=== PATIENT | female | born 1965 | race Caucasian/White ===

== ENCOUNTER 2024-11-09 20:41 | Emergency (ER) | payer OTHER, MEDICAID ==
[~2024-11-09] VITALS: Ht 165.1 cm; Wt 63.5 kg
[2024-11-09] MEDS ORDERED: HYDROCODONE/APAP 5/325MG TABLET ONE (22:24)
[2024-11-09] MEDS: HYDROCODONE/APAP 5/325MG TABLET PO ONE (22:25)
[2024-11-09] MEDS ORDERED: ACETAMINOPHEN 325 MG TABLET ONE (22:33)
[2024-11-09] MEDS: ACETAMINOPHEN 325 MG TABLET PO ONE (22:35)
[2024-11-09 23:33] VITALS: BP 142/89; TEMP 98; O2SAT 98
== END 2024-11-09 23:33 | disposition home or self-care (01) ==
LOC: ER 20:44
DX: S30.0XXA Contusion of lower back and pelvis, initial encounter (principal); S80.12XA Contusion of left lower leg, initial encounter; M54.50 Low back pain, unspecified; M79.605 Pain in left leg; Z88.1 Allergy status to other antibiotic agents; V03.10XA Pedestrian on foot injured in collision with car, pick-up truck or van in traffic accident, initial encounter; Y93.89 Activity, other specified; Y92.89 Other specified places as the place of occurrence of the external cause; Y99.8 Other external cause status
CPT/HCPCS: 72131-TC; 72170-TC; 72220-TC; 73590-TC